=== PATIENT | female | born 1975 | race Caucasian/White ===

== ENCOUNTER 2023-12-09 11:05 | Emergency (ER) | payer BC, SELFPAY ==
[2023-12-09 11:39] VITALS: BP 114/76; PULSE 84; RESP 18; TEMP 36.3; O2SAT 99; BMI 34.4
[2023-12-09 13:13] LABS: PCR FLU A Negative PCR FLU A (Negative); PCR FLU B Negative PCR FLU B (Negative); PCR RSV Negative PCR RSV (Negative); SARS PCR* Negative SARS-CoV-2 (Negative)
== END 2023-12-09 13:47 | disposition home or self-care (01) ==
LOC: ED 13:32
PROVIDERS: Emergency Medicine
DX: Z53.21 Procedure and treatment not carried out due to patient leaving prior to being seen by health care provider (principal)
CPT/HCPCS: 87631